=== PATIENT | female | born 2000 | race Caucasian/White ===

== ENCOUNTER → 2018-05-06 15:51 | Outpatient (CLI) | payer MEDICAID, SELFPAY ==
--- NOTE | 2018-05-06 09:10 | TONS_PTH ---
PATIENT: TALITA HSIEH LOC: [facility] U#:[id number] AGE/SX: 24/F ROOM: RE05/06/[address]: Dr. Turner Sood MD : 2000 BED: DIS: SPEC #: [id number] RECD: 05/06/18 15:20 STATUS: ELIZABETH REPhyllis #: [id number] JAMEY: 05/06/18 09:[address]: Turner Sood DEPT: SURGICAL PATHOLOGY RECD BY: Gareth Dunaway ENTERED: 05/07/18 12:01 SP TYPE: TONSILS OTHR DR: Dr. Chapis Dillard MD [facility] Tissues: Tonsil, NOS Procedures: Surgery Specimen Level III Comments: @ Specimen number changed from [id number] to [id number] @ on 05/07/18 at 1541 by RGOOD. HEADER OPERATION: Tonsillectomy PRE-OP DIAGNOSIS: Hypertrophy of tonsils, chronic tonsillitis TISSUE SUBMITTED: Tonsils, right pinned MICROSCOPIC DIAGNOSIS Right and left tonsils, bilateral tonsillectomies: Benign lymphoid follicular hyperplasia, consistent with chronic tonsillitis. Organisms consistent with actinomyces. AM:hernandez 05/09/18 MICROSCOPIC DESCRIPTION Slides are reviewed. GROSS DESCRIPTION Received is one container labeled with the patient's name and designated tonsils - pin on right are two tonsils that in aggregate weigh 10.8 gm. The right tonsil has a pin on it and measures 3 x 1.7 x 1.5 cm. The left tonsil measures 3 x 1.6 x 1.5 cm. Both tonsils are similar in appearance. The external surfaces are pink-murcia, smooth, glistening and somewhat lobulated. Focally they are hemorrhagic, granular and bear cautery artifact. Serial cross sections through the tonsils reveal normal tonsillar architecture. Sections are submitted in two cassettes as follows: 1 - right tonsil, 2 - left tonsil. / AM:hernandez 05/07/18 TC:5 CPT: 12499 x2
== END ==
PROVIDERS: Family Provider Pediatrics; PCP Pediatrics; Visit Provider Otolaryngology
DX: J35.01 Chronic tonsillitis (principal)
CPT/HCPCS: 88304

== ENCOUNTER 2019-03-29 21:50 | Emergency (ER) | payer MEDICAID, SELFPAY ==
[2019-03-29 21:50] VITALS: BP 149/95; PULSE 87; RESP 16; TEMP 37.3; O2SAT 100; BMI 40.3
--- NOTE | 2019-03-29 22:08 | ED.VIS.GEN ---
History of Present Illness Chief Complaint: Burn Informant: Patient Onset: Hours - 1 Context: Sudden Onset - accidentally dropped a soliman of hot brownies that was still liquid, which splashed on her and burned her Timing: Continuous Quality: sore/burn Location: left hand, right knee, right 2nd toe Current Severity: Mild Maximum Severity: Severe Worsened by: palpation Relieved by: leaving it alone Associated Symptoms: none - Past Medical History (1) Depression Status: Chronic (2) Insomnia Status: Chronic Past Medical History - Allergies and Home Meds Allergies/Adverse Reactions: Allergies No Known Allergies Allergy (Verified 03/29/19 21:52) Primary Care Physician: Chapis Dillard MD [Primary Care Provider] - Smoking Status: Current some day smoker Drugs: None Review of Systems Musculoskeletal: Reports: Extremity Pain. Denies: Swelling Skin: Reports: Wounds. Denies: Rash Neurological: Denies: Headache, Weakness, Numbness Physical Exam Vital Signs/Narrative: Vital Signs Temp Pulse Resp BP Pulse Ox 03/29/19 21:50 99.1 F 87 16 149/95 H 100 General: Well nourished, Well developed, No Acute Distress Head: Normocephalic, Atraumatic Extremities: No edema, Tenderness - at burned areas only Skin: Normal color, No rash, No Trauma, - - Very tender, erythematous areas without any blistering/bulla formation on anterior right knee, a small amount on the left hand thenar eminence, and at the tibial aspect of the distal aspect of the right second toe. No other areas of burn. Less than 1% total body surface area, including all areas. Neurological: Alert, Oriented x3, Cranial nerves II-XII grossly intact, Normal Strength, Normal Sensation Psychological: Normal affect, Normal Mood Diagnostic/Tx/Re-eval - Medical Decision Making Patient was reassured this is all first-degree burn, supportive care is advised. She was given a Naprosyn here as well as a cool compress to use on the areas. No tetanus update necessary since there is no break in the skin. ED Disposition - Plan for ED Patient: Disposition: Home or Assisted Living Diagnosis: First degree burn Instructions: BURN, Thermal, (1'2'3') w/ Dressing Referrals: Chapis Dillard MD [Primary Care Provider] - As Needed Additional Instructions: Take ibuprofen 600 mg 2-3 times daily, every 6-8 hours as needed. Or, may take Aleve 1 pill every 12 hours as needed. Use cool compresses as needed for the first day or 2 especially.
[2019-03-29] MEDS: Naproxen 500 MG Tablet PO (22:22)
[2019-03-29 22:28] VITALS: RESP 16
--- NOTE | 2019-03-29 22:28 | ED.RN ---
REVIEWED D/C INSTRUCTIONS, FOLLOW UP CARE, AND S/S THAT WOULD WARRANT A RETURN TO THE ED WITH PT. PT VERBALIZED AN UNDERSTANDING AND DENIES FURTHER QUESTIONS FOR THIS RN. PT SKIN P/W/D, RESP EVEN AND UNLABORED, PT A&O X 3, NO DISTRESS NOTED. PT AMBULATED OUT OF ED, GAIT STEADY.
== END 2019-03-29 22:29 | disposition home or self-care (01) ==
LOC: ED 22:27
PROVIDERS: Emergency Provider Emergency Medicine; Family Provider Pediatrics; PCP Pediatrics
DX: T24.121A Burn of first degree of right knee, initial encounter (principal); T23.102A Burn of first degree of left hand, unspecified site, initial encounter; T25.131A Burn of first degree of right toe(s) (nail), initial encounter; T31.0 Burns involving less than 10% of body surface; X10.1XXA Contact with hot food, initial encounter; Y93.9 Activity, unspecified; Y92.9 Unspecified place or not applicable; F32.9 Major depressive disorder, single episode, unspecified; G47.00 Insomnia, unspecified; Z79.899 Other long term (current) drug therapy; F17.200 Nicotine dependence, unspecified, uncomplicated
CPT/HCPCS: 99283

== ENCOUNTER 2019-06-20 19:57 | Emergency (ER) | payer MEDICAID, SELFPAY ==
[2019-06-20 19:57] VITALS: BP 150/90; PULSE 88; RESP 16; TEMP 36.7; O2SAT 99; BMI 40.2
--- NOTE | 2019-06-20 20:14 | CT_ITS ---
STUDY: CT BRAIN WITHOUT CONTRAST REASON FOR EXAM: Female, 18 years old. Headaches RADIATION DOSAGE (If Supplied By Facility): CTDIvol = ( 44.99 ) mGy, DLP = ( 779.24 ) mGycm TECHNIQUE: Transaxial CT imaging of the brain was performed without administration of intravenous contrast material. Individualized dose optimization techniques were used for this CT. COMPARISON: No relevant priors. FINDINGS: Normal soft tissue structures. Normal calvarium. Normal size ventricles and extra-axial spaces for the patient's age. Normal white matter tracts of the cerebral hemispheres. Normal basal ganglia and thalami. Normal brainstem. Normal cerebellum. Partial empty sella deformity of uncertain clinical significance There is no intracranial hemorrhage. There are no findings of an acute ischemic infarction. Normal visualized paranasal sinuses. CT/Brain/Head without Contrast IMPRESSION: Partial empty sella deformity of uncertain significance Otherwise normal unenhanced CT of the brain. Electronically Signed: Ernie Sherman MD at 21:29 EDT , Service support ,
--- NOTE | 2019-06-20 20:22 | ED.VIS.GEN ---
History of Present Illness Chief Complaint: Headache Informant: Patient Onset: Today Context: Gradual Onset Timing: Continuous Current Severity: Severe Maximum Severity: Severe Worsened by: light Relieved by: nothing Narrative: Patient is a 18-year-old female with history of depression presenting with headache. Patient states she has a history of headaches but she is never had one this severe. Patient states a couple hours prior to arrival she was at home when she developed a headache. She states is on the right side of her head around her eye and going all the way back through her scalp. Is been constant. Is been worsening since it started. She is had 2 episodes of vomiting associated with it. Patient tried to take Advil at home with no relief. She states she has had headaches in the past but they have never been this severe or had vomiting with it. She also states that she was sweating profusely when it started. She is never had a head CT. She denies any other complaints. She states she takes continuous control so she does not know when her last menstrual period was. Patient states her vision feels a little blurry bilaterally but denies any other complaints such as weakness or numbness. Past Medical History - Allergies and Home Meds Allergies/Adverse Reactions: Allergies No Known Allergies Allergy (Verified 03/29/19 21:52) Primary Care Physician: Chapis Dillard MD [Primary Care Provider] - Past Medical History: - - Depression Smoking Status: Current some day smoker Review of Systems All systems negative except as indicated Eyes: Reports: Blurred Vision - bilaterally Gastrointestinal: Reports: Nausea, Vomiting Musculoskeletal: Reports: - Neurological: Reports: Headache Physical Exam Vital Signs/Narrative: Vital Signs Temp Pulse Resp BP Pulse Ox 06/20/19 19:57 98.1 F 88 16 150/90 H 99 Inital Vital Signs reviewed: Yes General: Well nourished, Well developed, Obese, No Acute Distress Head: Normocephalic, Atraumatic Eyes: Perrl, EOMI ENT: Moist mucous membranes, No rhinorrhea, TM's clear Neck: Supple, Nontender Cardiovascular: Regular rate, Regular rhythm, No murmurs Respiratory: No distress, CTA bilaterally, Chest nontender Abdomen: Soft, Nontender, Nondistended, Normal bowel sounds Back: Nontender, Normal Inspection Extremities: Nontender, No edema Skin: Normal color, No rash Neurological: Alert, Oriented x3, Cranial nerves II-XII grossly intact, Normal Strength, Normal Sensation, Normal Gait Psychological: Normal affect, Normal Mood Diagnostic/Tx/Re-eval Clinical Impression(s) from Imaging Studies Brain CT 06/20/19 20:14 IMPRESSION: Partial empty sella deformity of uncertain significance Otherwise normal unenhanced CT of the brain. Electronically Signed: Ernie Sherman MD at 21:29 EDT , Service support , Laboratory Data 06/20/19 20:20 Urine Test Negative - Medical Decision Making She is evaluated for headache. Is more severe than her normal headaches. She does not seem to have a diagnosis of migraines. She is never had a head CT. This is obtained to rule out acute intracranial process. Patient is refusing an IV so she is given oral Zofran and Benadryl prior to the head CT. Urine hCG is obtained prior to head CT. CT shows a partially empty sella deformity of uncertain significance but otherwise normal CT with no acute intracranial process. Patient is informed of incidental finding and need for follow-up with primary care doctor. Patient is then given for continued symptoms. On reevaluation she is improving. She states she is ready to go home. She continues to have normal neurologic exam. Patient is counseled on signs and symptoms requiring return to the emergency room. Patient verbalizes agreement and understand this plan. Patient discharged home in stable and improved condition. ED Disposition - Plan for ED Patient: Disposition: Home or Assisted Living Diagnosis: Headache Instructions: HEADACHE, Unspecified Referrals: Chapis Dillard MD [Primary Care Provider] - Additional Instructions: Follow-up with your primary care doctor next week. Your CT showed what is called an incidental finding. This is not an emergency but should just be followed up with your primary care doctor. You have been given a copy of your CT report. It is safe for you to go home. You can alternate Tylenol and ibuprofen for pain at home.
[2019-06-20] MEDS: DiphenhydrAMINE 25 MG Capsule 50 MG PO (20:25)
[2019-06-20] MEDS: Ondansetron ODT 4 MG Tablet PO (20:25)
[2019-06-20 20:45] LABS: Internal QC Validated? YES +Cl - CLEAR BKGD; Pregnancy, Urine Negative Negative
[2019-06-20] MEDS: Ketorolac 15 MG/ML Vial IM (22:23)
[2019-06-20] MEDS: proCHLORPERazine 5 MG Tablet 10 MG PO (22:39)
== END 2019-06-20 23:23 | disposition home or self-care (01) ==
PROVIDERS: Emergency Provider Emergency Medicine; Family Provider Pediatrics; PCP Pediatrics
DX: R51 Headache (principal); E23.6 Other disorders of pituitary gland; R11.2 Nausea with vomiting, unspecified; H53.8 Other visual disturbances; E66.9 Obesity, unspecified; F32.9 Major depressive disorder, single episode, unspecified; Z79.3 Long term (current) use of hormonal contraceptives; Z79.899 Other long term (current) drug therapy; F17.200 Nicotine dependence, unspecified, uncomplicated
CPT/HCPCS: 70450; 81025; 96372; 99283

== ENCOUNTER 2019-06-24 13:58 | Emergency (ER) | payer MEDICAID, SELFPAY ==
[2019-06-24 13:59] VITALS: BP 140/69; PULSE 79; RESP 16; TEMP 36.6; O2SAT 95; BMI 39.5
--- NOTE | 2019-06-24 15:29 | ED.DCSUM_ITS ---
History of Present Illness Chief Complaint: Headache Informant: Patient Onset: Today Context: Gradual Onset Timing: Continuous Current Severity: Severe Maximum Severity: Severe Narrative: Patient is a 18-year-old female presenting with a headache. She states started around 1 PM when she was having into work. She had one episode of vomiting since then. The headache is worsened gradually over this time. She states it is mostly over her right eye and radiates around her head on both sides. She has bilateral blurry vision associated with this. She states she had a similar headache about 5 days ago where she was seen in the ER. That time patient had a head CT that was negative for any acute process but did incidentally show an empty sella. Patient has not yet followed up with her primary care doctor. She did not take anything for headache prior to arrival. She denies any other complaints at this time. She denies any associated fever, rash, altered se nsations or weakness. Past Medical History - Allergies and Home Meds Allergies/Adverse Reactions: Allergies No Known Allergies Allergy (Verified 06/24/19 13:59) Primary Care Physician: Chapis Dillard MD [Primary Care Provider] - Prior records reviewed: Yes Past Medical History: - - Depression Surgical History: no surgical history Smoking Status: Never smoker Review of Systems All systems negative except as indicated Eyes: Reports: Blurred Vision - bilaterally Gastrointestinal: Reports: Nausea, Vomiting - x1 Neurological: Reports: Headache Physical Exam Vital Signs/Narrative: Vital Signs Temp Pulse Resp BP Pulse Ox 06/24/19 13:59 98 F 79 16 140/69 H 95 Inital Vital Signs reviewed: Yes General: Well nourished, Well developed, No Acute Distress Head: Normocephalic, Atraumatic Eyes: Perrl, EOMI ENT: Moist mucous membranes, No rhinorrhea Neck: Supple, Nontender Cardiovascular: Regular rate, Regular rhythm, No murmurs Respiratory: No distress, CTA bilaterally, Chest nontender Abdomen: Soft, Nontender, Nondistended, Normal bowel sounds Back: Nontender, Normal Inspection Extremities: Nontender, No edema Skin: Normal color, No rash Neurological: Alert, Oriented x3, Cranial nerves II-XII grossly intact, Normal Strength, Normal Sensation, - - NIH 0, GCS 15 Psychological: Normal affect, Normal Mood Diagnostic/Tx/Re-eval - Medical Decision Making Patient is evaluated for headache. It is not a thunderclap headache. She is a normal neurologic exam. Patient had a negative head CT last week. I do not think repeat imaging is indicated. She does not have any signs or symptoms consistent with meningitis. Patient is given a migraine cocktail consisting of Compazine, Toradol Benadryl and fluids. Patient requested her IV be removed before fluids could be completed. Patient eloped from the department before I could reevaluate her. When I initially evaluated the patient and I did discuss the need for her to follow-up with her primary care doctor as these headaches have now been more recurrent. She had verbalized agreement that. Because patient left before I could reevaluate,eloped, she did not receive the discharge paperwork. ED Disposition - Plan for ED Patient: Disposition: Home or Assisted Living Diagnosis: Migraine Instructions: HEADACHE, Unspecified Referrals: Chapis Dillard MD [Primary Care Provider] -
[2019-06-24 15:49] VITALS: BP 126/65; PULSE 69; RESP 15; O2SAT 96
[2019-06-24] MEDS: 0.9% Normal Saline 1,000 ML 999 ML IV (15:50)
[2019-06-24] MEDS: proCHLORPERazine 10 MG/2 ML Vial IV (15:51)
[2019-06-24] MEDS: Ketorolac 30 MG/ML Syringe IV (15:51)
[2019-06-24] MEDS: DiphenhydrAMINE 50 MG/ML Syringe IV (15:51)
== END 2019-06-24 19:00 | disposition home or self-care (01) ==
PROVIDERS: Emergency Provider Emergency Medicine; Family Provider Pediatrics; PCP Pediatrics
DX: G43.909 Migraine, unspecified, not intractable, without status migrainosus (principal); F32.9 Major depressive disorder, single episode, unspecified; Z79.899 Other long term (current) drug therapy
CPT/HCPCS: 96361; 96374; 96375; 99283; J7030; A4216

== ENCOUNTER → 2019-07-15 15:25 | Outpatient (CLI) | payer MEDICAID, SELFPAY ==
[2019-06-24 13:59] VITALS: BMI 39.5
== END ==
PROVIDERS: Family Provider Pediatrics; PCP Pediatrics; Referring Provider Otolaryngology Otolaryngology/Facial Plastic Surgery; Visit Provider Otolaryngology Otolaryngology/Facial Plastic Surgery
DX: J02.9 Acute pharyngitis, unspecified (principal)
CPT/HCPCS: 87070

== ENCOUNTER 2019-08-28 16:56 | Emergency (ER) | payer MEDICAID, SELFPAY ==
[2019-08-28 16:56] VITALS: BP 143/82; PULSE 79; RESP 18; TEMP 36.7; BMI 40.7
--- NOTE | 2019-08-28 17:11 | ED.DCSUM_ITS ---
- ER Visit Summary Date of Service: 08/28/19 Chief Complaint: [Migraine headache] History of Present Illness: The patient is a 18 F presents the emergency department complaint of a headache that started 3 days ago. Patient states that it started typical of her migraines with pain behind the right eye on the right side of her head that then went to the back of her head. Currently the entire head hurts. Patient states that she gets headaches at least once a week. She has had to come to the emergency department for treatment. Patient states that she was recently started on a new medication for migraines by her primary care physician but she cannot remember the name of it. Patient denies any falls or head injuries. She denies recent illness. She describes occasional photophobia. She has had no significant nausea or vomiting.] Physical Examination: [HEENT-PERRLA, EOMI. Cranial nerves II through XII grossly intact. TMs clear. Mucous membranes moist. No adenopathy. Cardiovascular-regular rate and rhythm without murmur or ectopy Lungs-clear to auscultation, chest wall stable without crepitus or subcu emphysema Abdomen-normoactive bowel sounds, soft, nontender, no rebound or rigidity, no peritoneal signs. Neuro [id number]-[id number]-isor and heel kemp testing within normal limits, negative Romberg, negative pronator, fundi benign Extremities-intact ?4, normal range of motion, normal pulses, atraumatic] Test Results: [None indicated] Emergency Department Course and Treatment: [Patient was given Toradol 60 mg IM as well as Phenergan 25 mg IM. Patient refused IV fluids and IV meds. Patient's headache did improve and now rates it a 5 out of 10.] Treatment Plan: [Advised to push fluids and follow-up with her primary care physician within next 3 to 5 days.] Disposition: [Discharged home in stable condition.] Impression: [Migrainous cephalgia] This note was generated with [employer] dictation software. It may contain incorrect words, spelling, and punctuation that were not noted in review of the chart prior to signing ED Disposition - Plan for ED Patient: Referrals: Chapis Dillard MD [Primary Care Provider] -
[2019-08-28] MEDS: proMETHazine 25 MG/ML Syringe IM (17:20)
[2019-08-28] MEDS: Ketorolac 60 MG/2 ML Vial IM (17:21)
--- NOTE | 2019-08-28 18:02 | ED.DEP ---
ED Disposition - Plan for ED Patient: Instructions: ED, Migraine (Classical) Referrals: Chapis Dillard MD [Primary Care Provider] - 3-5 Days
[2019-08-28 18:14] VITALS: BP 131/70; PULSE 60; RESP 16; O2SAT 99
--- NOTE | 2019-08-28 18:15 | ED.RN ---
DISCHARGE INSTRUCTIONS GIVEN TO AND REVIEWED WITH PATIENT, PATIENT DENIES QUESTIONS OR CONCERNS AND VOICES UNDERSTANDING OF DISCHARGE INSTRUCTIONS. PT AMBULATES OUT OF ROOM WITHOUT DIFFICULTY.
== END 2019-08-28 18:15 | disposition home or self-care (01) ==
LOC: ED 17:14
PROVIDERS: Emergency Provider Emergency Medicine; Family Provider Pediatrics; PCP Pediatrics
DX: G43.909 Migraine, unspecified, not intractable, without status migrainosus (principal); Z79.899 Other long term (current) drug therapy; Z72.0 Tobacco use
CPT/HCPCS: 96372; 99282

== ENCOUNTER 2019-09-02 14:44 | Emergency (ER) | payer MEDICAID, SELFPAY ==
[2019-09-02 14:45] VITALS: BP 146/73; PULSE 91; RESP 16; TEMP 36.8; O2SAT 97; BMI 40.3
--- NOTE | 2019-09-02 14:54 | ED.VIS.GEN ---
History of Present Illness Chief Complaint: Abd Pain Informant: Patient Onset: Days - Onset 3 days ago Context: Sudden Onset Timing: Intermittent Quality: Sharp Location: Bilateral radiating to the back Current Severity: - Maximum Severity: Severe Worsened by: Nothing Relieved by: Nothing Associated Symptoms: The site of food makes me want a vomit. Narrative: She is a 18-year-old female who states her last normal menstrual period ended 2 days ago who presents with intermittent bilateral abdominal pain that radiates through to her back described as sharp. Nothing makes the pain better or worse. She thought she may have been dehydrated drink more fluid and is urinated more. She denies hematuria or dysuria. She denies history of ovarian cysts or endometriosis. The drive to the emergency room did have not have affect. She states she is not eating much. She states when the pain is intense she loses her breath. The pain does not awaken her during the evening when she is asleep. She denies fever, chills or night sweats. She denies weight gain or weight loss. She denies recent URI symptoms. There is no history of trauma. There is no history of prior abdominal pain. Prior similar symptoms: No Recent Illness/Hospitalization: No - Past Medical History (1) Depression Status: Chronic (2) Insomnia Status: Chronic Past Medical History - Allergies and Home Meds Allergies/Adverse Reactions: Allergies No Known Allergies Allergy (Verified 09/02/19 14:47) Primary Care Physician: Chapis Dillard MD [Primary Care Provider] - Prior records reviewed: Yes Surgical History: no surgical history Lives: With Family Smoking Status: Current every day smoker Alcohol: None Drugs: None Review of Systems General: Denies: Chills, Fever, Sweats Eyes: Reports: Diplopia. Denies: Visual changes - bilaterally, Blurred Vision - bilaterally ENT: Denies: Bilateral ear pain, Rhinorrhea, Sore throat Cardiovascular: Denies: Chest pain, Palpitations Respiratory: Denies: Dyspnea, Cough, Dyspnea on exertion Gastrointestinal: Reports: Abdominal pain, Nausea. Denies: Vomiting, Diarrhea, Constipation, Melena, Hematochezia, -, - Genitourinary: Reports: Frequency. Denies: Dysuria, Hematuria, -, - Musculoskeletal: Reports: Back pain. Denies: Myalgias, Arthralgias, Neck pain, Swelling, Extremity Pain, -, - Skin: Denies: Rash, Wounds Neurological: Denies: Headache, Weakness, Numbness Psych: Reports: Depression Hematologic: Denies: Easy bruising, Easy bleeding Physical Exam Vital Signs/Narrative: Vital Signs Temp Pulse Resp BP Pulse Ox 09/02/19 14:45 98.3 F 91 16 146/73 H 97 Inital Vital Signs reviewed: Yes General: Well nourished, Well developed, Obese, No Acute Distress Head: Normocephalic, Atraumatic Eyes: Perrl, EOMI. Negative for: Pale conjunctiva, Scleral icterus ENT: Moist mucous membranes, No rhinorrhea Neck: Supple, Nontender, No lymphadenopathy, No JVD Cardiovascular: Regular rate, Regular rhythm, No murmurs, Normal S1, Normal S2 Respiratory: No distress, CTA bilaterally, Chest nontender Abdomen: Soft, Nontender, Nondistended, Normal bowel sounds, No masses Back: Nontender, Normal Inspection. Negative for: CVA tenderness Extremities: Nontender, No edema Skin: Normal color, No rash, No Trauma. Negative for: Cyanosis, Diaphoresis, Jaundice Neurological: Alert, Oriented x3, Cranial nerves II-XII grossly intact, Normal Strength, Normal Sensation Psychological: Normal affect, Normal Mood Diagnostic/Tx/Re-eval Laboratory Results 09/02/19 09/02/19 09/02/19 15:13 15:13 16:10 WBC 11.0 RBC 4.47 Hgb 12.5 Hct 39.1 MCV 87.5 MCH 28.0 MCHC 32.0 RDW Std Deviation 43.3 RDW Coeff of Medardo 13.5 Plt Count 275 MPV 9.0 Immature Gran % (Auto) 0.200 Neut % (Auto) 70.4 H Lymph % (Auto) 21.1 [place] % (Auto) 7.5 Eos % (Auto) 0.5 Baso % (Auto) 0.3 Absolute Neuts (auto) 7.8 H Absolute Lymphs (auto) 2.33 Nucleated RBC % 0 Serum , Qual NEGATIVE Urine Color Straw Urine Clarity Clear Urine pH 6.0 Ur Specific [place] 1.010 Urine Protein Negative Urine Glucose (UA) Normal Urine Ketones Negative Urine Occult Blood 25 H Urine Nitrite Negative Urine Bilirubin Negative Urine Urobilinogen Normal Ur Leukocyte Esterase 500 H Urine RBC 0 SEEN Urine WBC 5-10 SEEN Ur Squamous Epith Cells 0-5 SEEN Urine Bacteria RARE Urine Mucus 0 SEEN CBC and differential unremarkable. Serum test is negative. Urine is positive for leukoesterase and blood on macro. Micro reveals no red cells 5-10 WBCs and positive bacteria. Since she is reporting frequency this may represent a urinary tract infection. Will treat with nitrofurantoin. - Medical Decision Making Patient with intermittent sharp pain. Since she reports frequency UA was obtained. CBC was obtained to evaluate for anemia and white count. Patient's exam is benign with no tenderness. ED Disposition - Plan for ED Patient: Disposition: Home or Assisted Living Diagnosis: Cystitis, Abdominal pain, acute, bilateral lower quadrant Instructions: Urinary Tract Infections in Women Prescriptions: Nitrofurantoin Macrocrystal [Nitrofurantoin] 100 mg PO BID #10 cap Prescription Printed Referrals: Chapis Dillard MD [Primary Care Provider] - 3-5 Days if not improving
[2019-09-02 15:25] LABS: Absolute Lymphocyte Count 2.33 X10^3/uL (0.83-4.51); Absolute Neutrophil Count 7.8 X10^3/uL (2.0-7.7); Basophil# 0.03 X10^3/uL; Basophil% 0.3 % (0-1); Eosinophil# 0.06 X10^3/uL; Eosinophils% 0.5 % (0-5); Hematocrit 39.1 % (37-47); Hemoglobin 12.5 g/dL (12.0-15.0); Lymphocyte # 2.33 X10^3/ul (4.0); Lymphocyte % 21.1 % (19-41); Mean Corpuscular Volume 87.5 fL (81-99); Monocyte# 0.83 X10^3/uL; Monocyte% 7.5 % (0-10); NRBC Flagged by Analyzer 0 % (0-5); Neutrophil # 7.77 X10^3/uL (2.7-7.7); Neutrophil % 70.4 % (47-70); Platelet Count 275 K/mm3 (150-450); RBC Distribution Width CV 13.5 % (11.6-14.6); RBC Distribution Width SD 43.3 fl (35.1-43.9); Red Blood Count 4.47 M/mm3 (4.2-5.4)
[2019-09-02 15:29] LABS: Internal QC Validated? YES +Cl - CLEAR BKGD; Pregnancy, Serum, hCG Quali. NEGATIVE Negative
[2019-09-02 16:16] LABS: Mucous, Urine 0 SEEN /hpf (<or=2+); Red Blood Cells-Urine 0 SEEN /hpf (0-5)
[2019-09-02 16:19] LABS: Color, Urine Straw (Yellow); Glucose, Dipstick Normal (Normal); Ketone-Dipstick Negative (Negative); Leukocyte Esterase-Dipstick 500 /ul (Negative); Nitrite-Dipstick Negative (Negative); Occult Blood-Urine 25 /ul (Negative); Protein-Dipstick Negative (Negative); Urine Bilirubin Dipstick Negative (Negative); Urine Clarity Clear (Clear); Urine Urobilinogen Normal (Normal)
[2019-09-02 16:26] LABS: Bacteria RARE /hpf (None Seen); Squamous Epithelial Cells - UA 0-5 SEEN /hpf (5-10); White Blood Cells 5-10 SEEN /hpf (0-5)
[2019-09-02 17:02] VITALS: BP 121/65; PULSE 68; RESP 17; O2SAT 97
== END 2019-09-02 17:02 | disposition home or self-care (01) ==
PROVIDERS: Emergency Provider Emergency Medicine; Family Provider Pediatrics; PCP Pediatrics
DX: N30.90 Cystitis, unspecified without hematuria (principal); H53.2 Diplopia; E66.9 Obesity, unspecified; F32.9 Major depressive disorder, single episode, unspecified; G47.00 Insomnia, unspecified; Z79.899 Other long term (current) drug therapy; F17.200 Nicotine dependence, unspecified, uncomplicated
CPT/HCPCS: 81001; 84703; 85025; 99283

== ENCOUNTER 2020-06-24 17:21 | Emergency (ER) | payer MEDICAID, SELFPAY ==
[2020-06-24 17:21] VITALS: BP 164/103; PULSE 81; RESP 18; TEMP 36.1; O2SAT 95; BMI 34.0
--- NOTE | 2020-06-24 17:30 | ED.VIS.GEN ---
History of Present Illness Chief Complaint: Back Informant: Patient Onset: Today Context: Gradual Onset Timing: Continuous Current Severity: Moderate Maximum Severity: Moderate Narrative: The patient is a 19-year-old female with no significant medical history that presents to the emergency department with left-sided back pain. Patient states she woke with the pain. She states she thinks she slept wrong. States she has had a lot of spasm in her low back. She denies any change in urination, numbness in her groin, or weakness in her leg. She states he tries to bend, makes the pain worse. It is nonradiating. She is had no fevers or chills. She denies any trauma. She states she has had back pain before, but not the significant. She is otherwise been in her normal state of health. Prior similar symptoms: Yes Recent Illness/Hospitalization: No Past Medical History - Allergies and Home Meds Allergies/Adverse Reactions: Allergies No Known Allergies Allergy (Verified 06/24/20 17:23) Primary Care Physician: Chapis Dillard MD [Primary Care Provider] - Prior records reviewed: Yes Past Medical History: None Surgical History: no surgical history Smoking Status: Current every day smoker Review of Systems General: Denies: Chills, Fever, Sweats Eyes: Denies: Visual changes - bilaterally, Diplopia ENT: Denies: Rhinorrhea, Sore throat Cardiovascular: Denies: Chest pain, Palpitations Respiratory: Denies: Dyspnea, Cough, Dyspnea on exertion Gastrointestinal: Denies: Abdominal pain, Nausea, Vomiting, Diarrhea, Melena, Hematochezia Genitourinary: Denies: Dysuria, Hematuria, Frequency Musculoskeletal: Reports: Back pain. Denies: Extremity Pain Skin: Denies: Rash, Wounds Neurological: Denies: Headache, Weakness, Numbness Physical Exam Vital Signs/Narrative: Vital Signs Temp Pulse Resp BP Pulse Ox 06/24/20 17:21 96.9 F L 81 18 164/103 H 95 Inital Vital Signs reviewed: Yes General: Well nourished, Well developed, No Acute Distress Head: Normocephalic, Atraumatic Eyes: Perrl, EOMI ENT: Moist mucous membranes, No rhinorrhea Neck: Supple, Nontender Cardiovascular: Regular rate, Regular rhythm, No murmurs Respiratory: No distress, CTA bilaterally, Chest nontender Abdomen: Soft, Nontender, Nondistended, Normal bowel sounds Back: Normal Inspection, - - Left paraspinal lumbar tenderness with tightness and spasm. Normal straight leg raise. Normal pulses and reflexes.. Negative for: Spinal tenderness Extremities: Nontender, No edema Skin: Normal color, No rash Neurological: Alert, Oriented x3, Cranial nerves II-XII grossly intact, Normal Strength, Normal Sensation Psychological: Normal affect, Normal Mood Diagnostic/Tx/Re-eval Clinical Impression(s) from Imaging Studies Lumbar Spine X-Ray 06/24/20 17:40 IMPRESSION: Normal x-ray examination of the lumbar spine. Electronically Signed: Ernie Sherman MD at 17:55 EDT , Service support , - Medical Decision Making The patient presents with atraumatic left lumbar back pain. She has no midline tenderness. She has a negative straight leg raise. She has normal pulses and reflexes. She is had no red flag symptoms. Plain films are obtained which are unremarkable. The patient was treated with oral medications with some improvement. At this point, she will be discharged home and continue on these medications. She was counseled on ice and anti-inflammatories along with appropriate follow-up. She is comfortable with this plan. Impression 1. Left lumbar strain ED Disposition - Plan for ED Patient: Disposition: Home or Assisted Living Instructions: ED Spasm Back No Trauma Prescriptions: cycloBENZAPRine HCl [Flexeril] 10 mg PO TID PRN #20 tab PRN Reason: Muscle Spasm Prescription Printed Hydrocodone Bitart/Apap 5-325 [[place] 5MG-325MG] 1 tab PO Q6H PRN PRN 3 Days #10 tab PRN Reason: Pain Prescription Printed Referrals: Chapis Dillard MD [Primary Care Provider] -
[2020-06-24] MEDS: cycloBENZAPRine HCl 10 MG Tablet PO (17:36)
[2020-06-24] MEDS: HYDROcodone Bitartrate/Apap 5/325 Tablet PO (17:36)
--- NOTE | 2020-06-24 17:40 | RAD_ITS ---
STUDY: X-RAY - LUMBAR SPINE REASON FOR EXAM: Female, 19 years old. WOKE UP WITH LOWER LEFT BACK PAIN TODAY TECHNIQUE: 3 view(s) of the lumbar spine were obtained. COMPARISON: None FINDINGS: Normal lumbar lordosis. There is no substantial scoliosis. There is a normal alignment of the vertebrae. Normal vertebral bodies and endplates. Normal disc space heights. The soft tissue structures are unremarkable. RAD/Lumbar Spine 2 or 3 Views IMPRESSION: Normal x-ray examination of the lumbar spine. Electronically Signed: Ernie Sherman MD at 17:55 EDT , Service support ,
== END 2020-06-24 18:35 | disposition home or self-care (01) ==
LOC: ED 17:47
PROVIDERS: Emergency Provider Emergency Medicine; PCP Pediatrics
DX: S39.012A Strain of muscle, fascia and tendon of lower back, initial encounter (principal); X58.XXXA Exposure to other specified factors, initial encounter; Y93.9 Activity, unspecified; Y92.9 Unspecified place or not applicable; F17.200 Nicotine dependence, unspecified, uncomplicated
CPT/HCPCS: 72100; 99281; 99284

== ENCOUNTER 2021-01-20 12:32 | Emergency (ER) | payer MEDICAID, SELFPAY ==
[2021-01-20 12:33] VITALS: BP 167/81; PULSE 90; RESP 18; TEMP 36.4; O2SAT 96; BMI 34.0
--- NOTE | 2021-01-20 12:45 | ED.RN ---
BIlateral ankle pain per patient
--- NOTE | 2021-01-20 13:23 | RAD_ITS ---
STUDY: X-RAY - right ANKLE REASON FOR EXAM: 20-year-old female patient with history of ankle pain following a fall., TECHNIQUE: 3 view(s) of the ankle. COMPARISON: None. FINDINGS: Normal visualized distal tibia and fibula. Normal medial and lateral malleoli. Normal tibiotalar articulation and ankle mortise. Normal visualized talus and calcaneus. The visualized subtalar, talonavicular, calcaneocuboid and tarsal articulations are normal. Lateral soft tissue swelling. RAD/Ankle min 3 Views IMPRESSION: Lateral soft tissue swelling. Electronically Signed: Malcolm Marshall MD at 13:57 EDT , Service support ,
--- NOTE | 2021-01-20 13:25 | RAD_ITS ---
STUDY: X-RAY - left ANKLE REASON FOR EXAM: 20-year-old patient with history of ankle pain following a fall., TECHNIQUE: 3 view(s) of the ankle. COMPARISON: None. FINDINGS: Normal visualized distal tibia and fibula. Normal medial and lateral malleoli. Normal tibiotalar articulation and ankle mortise. Normal visualized talus and calcaneus. The visualized subtalar, talonavicular, calcaneocuboid and tarsal articulations are normal. Diffuse soft tissue swelling. RAD/Ankle min 3 Views IMPRESSION: Diffuse soft tissue swelling. Electronically Signed: Malcolm Marshall MD at 13:57 EDT , Service support ,
[2021-01-20] MEDS: HYDROcodone Bitartrate/Apap 5/325 Tablet PO (13:33)
--- NOTE | 2021-01-20 14:21 | EX.ED.GENINJ ---
HPI History of Present Illness Chief Complaint: Fall Narrative Narrative: 20-year-old female presenting with bilateral ankle pain. Patient states she was walking off a porch and slipped and fell. She twisted both of her ankles. She did not hit her head or lose consciousness. She has painful ambulation. She denies other complaints. [facility] Medical History (Updated 01/20/21 @ 14:[address] Danielle Santiago MD) Anxiety Depression Depression Home Medications fluoxetine 60 mg PO DAILY 03/29/19 [History Last Taken 09/02/19] norgestimate-ethinyl estradiol 1 tab PO DAILY 03/29/19 [History Last Taken 09/02/19] trazodone 50 mg PO QHS 03/29/19 [History Last Taken 09/01/19] buspirone 15 mg PO DAILY 08/28/19 [History Last Taken 09/02/19] naproxen 500 mg PO BID #14 tab 01/20/21 [Rx Last Taken Unknown] Allergy/AdvReac Type Severity Reaction Status Date / Time No Known Allergies Allergy Verified 06/24/20 17:23 Social History Smoking Status: Current every day smoker ROS ROS ED Constitutional Constitutional ED: Denies fever(s) Cardiovascular Cardiovascular: Denies chest pain Respiratory/Chest Respiratory/Chest: Denies dyspnea Gastrointestinal Gastrointestinal: Denies abdominal pain Musculoskeletal Musculoskeletal: Reports other Details: Bilateral ankle pain Neurologic Neurologic: Denies headache(s) EXAM Physical Exam Const Vital Signs: 01/20/21 12:33 01/20/21 12:43 Temperature 97.5 F L Temperature Source Temporal Pulse Rate 90 Respiratory Rate 18 Respiratory Depth Normal Blood Pressure 167/81 H Blood Pressure Mean 109 Pulse Ox 96 Oxygen Delivery Method Room Air Room Air Positive well nourished and well developed General Appearance ED: well developed HEENT Reports normocephalic and head/scalp atraumatic Eyes PERRL and EOMs intact bilaterally Neck supple General: Negative for tenderness Chest Wall inspection of chest normal Resp normal respiratory effort and clear to auscultation bilaterally Cardio regular rate and regular rhythm GI non-tender and non-distended Palpation: soft; Negative for guarding or rebound tenderness present no CVA tenderness Extremity Extremity Narrative: Left ankle lateral tenderness and swelling. Right ankle lateral tenderness and swelling. Normal pulses. No knee tenderness. No foot tenderness. Neuro oriented x3 Sensorium / Orientation: alert Psych mental status grossly normal MDM MDM MDM Narrative Medical decision making narrative: Bilateral x-rays read by myself and radiology shows soft tissue swelling. Patient was given [place] x1. She is given prescription for Naprosyn. She was given Aircast. She declined crutches. Advised to follow up with primary care physician. Advised return to ED for worsening complaints. Radiography Diagnostic Testing: Radiology Impression Ankle X-Ray 01/20/21 13:23 IMPRESSION: Lateral soft tissue swelling. Electronically Signed: Malcolm Marshall MD at 13:57 EDT , Service support , Ankle X-Ray 01/20/21 13:25 IMPRESSION: Diffuse soft tissue swelling. Electronically Signed: Malcolm Marshall MD at 13:57 EDT , Service support , Discharge Plan Triage Chief Complaint: Fall Other Complaint: Lower Extremity Injury ED Provider: Danielle Santiago Dx/Rx/DC Orders Clinical Impression: Right ankle sprain, Left ankle sprain Instructions: ED Ankle Sprain (Adult) Prescriptions: New naproxen 500 MG tablet 500 mg PO BID Qty: 14 RF: 0 No Action norgestimate-ethinyl estradiol 1 TABLET tablet 1 tab PO DAILY RF: 0 trazodone 50 MG tablet 50 mg PO QHS RF: 0 fluoxetine 20 MG capsule 60 mg PO DAILY RF: 0 buspirone 15 MG tablet 15 mg PO DAILY RF: 0 Primary Care Provider: Abby Melgoza NP Referrals: Abby Melgoza NP, RISK CONTROL ANALYST-C [Primary Care Provider] - Disposition Disposition: Home, self care
[2021-01-20 14:46] VITALS: BP 124/80; PULSE 70; RESP 17; TEMP 36.7; O2SAT 98
== END 2021-01-20 14:47 | disposition home or self-care (01) ==
PROVIDERS: Emergency Provider Emergency Medicine; PCP Nurse Practitioner Primary Care
DX: S93.401A Sprain of unspecified ligament of right ankle, initial encounter (principal); S93.402A Sprain of unspecified ligament of left ankle, initial encounter; W01.0XXA Fall on same level from slipping, tripping and stumbling without subsequent striking against object, initial encounter; Y93.01 Activity, walking, marching and hiking; Y92.9 Unspecified place or not applicable; F32.9 Major depressive disorder, single episode, unspecified; F41.9 Anxiety disorder, unspecified; Z79.899 Other long term (current) drug therapy; F17.200 Nicotine dependence, unspecified, uncomplicated
CPT/HCPCS: 73610; 99284

== ENCOUNTER 2021-02-21 10:03 | Outpatient (RCR) | payer MEDICAID, SELFPAY ==
--- NOTE | 2021-02-21 10:48 | HP.PTEVAL_ITS ---
Patient's Visit Information TALITA HSIEH is a 20 year old F referred to Physical Therapy by Dr. Lm Ivy DPM with a diagnosis of B ankle sprain.. Date of Evaluation: 02/21/21 Physical Therapist: Edvin Rico DPT, OCS, CSCS - Visit Plan Frequency: 3x /Week Duration: 4-6 Weeks Plan: 3x/week for 3-4 weeks for. 1. ROM, mobs and stretching B ankles focussing DF, inversion and gastroc stretching. 2. strength adn proprioception B ankles progressing to I home program as tolerated. 3. ice and TENs as needed for pain. - Subjective 01/20/21 walking on porch and slipped adn fell and hurt both ankles. Went to ED and had them x rayed which were OK. Diagnosed with B ankle sprains. Saw Dr. vIy in [place] adn ligaments still intact. Still cannot walk normal pace, cannot get up off floor, hard to get out of car, cannot go down steps. can't run or jump. They all hurt. She can do them, but they hurt. She feels pain in morning every morning laterally at both ankles. R is worse. Sleep is OK. 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 Hobbies include walking dogs and playing at park. she does that very little due to pain. Mows yard push mow but it hurts. Basic ADLs at home are getting done. Painful to put shoes on, hard to wear close toed shoes. Has steps to basement at home with railing and can do them but they are painful. Lives with boyfriend. - Pain B ankles Pain Intensity (Out of 10): 2 Pain Intensity Range: 0, 10 - Objective Walks very slowly but no antalgia and I today. Trasnfers I. Steps appear painful especially descending due to lack of ROM but reciprocal and I with rail. Pt has pes planus B with hindfoot valgus slightly. AROM B ankles -3 DF with max tight gastroc and soleus. Inv 20 L and 22 R and painful B. Eversion 10 B with pain. PF 40 B. SLS challenging B with ec. Strength is 4- in DF and eversion with pain B in both. Inv is 4 adn painfree B. PF is 5/5. reflexes 0/3 B patella and achilles. Sensation LE WNL to gross light touch. - talar tilt, - varus and valgus at ankles. - Goals Goal 1:: AROM 2 DF to 25 inversion without pain Goal Time Frame: 4-6 Weeks Goal 2:: Steps reciprocal without pain. Goal Time Frame: 4-6 Weeks Goal 3:: Walk normal spped in community and walk dogs without increased pain Goal Time Frame: 4-6 Weeks Goal 4:: Put shoes and socks on without pain Goal Time Frame: 4-6 Weeks Goal 5:: Work without noticiing pain increase in B ankles. Goal Time Frame: 4-6 Weeks - Rehabilitation Potential Physical Therapy Diagnosis: B ankle sprains and diminished Zahida dn strength propriaoception. Rehabilitation Potential: Fair - Anticipated Interventions Patient/Client Instruction: Educate patient on: Condition, Plan of Care For the Purpose of:: To decrease pain, To increase ROM, To improve muscle performance and motor function Therapeutic Exercise to Include: Strength training, Flexibilty training, Gait and locomotor training, Passive ROM, Active ROM For the Purpose of:: To decrease pain, To increase ROM, To improve muscle performance and motor function, To increase tolerance to activity/condition/position, To improve ability of physical actions for home/community/work/leisure, To improve gait and locomotor functions Manual Therapy Techniques to Include: Mobilization, Passive ROM For the Purpose of:: To decrease pain, To increase ROM TENS: Yes Cryotherapy (ice pack, ice massage): Yes For the Purpose of:: To decrease pain, To increase ROM Thank you for the opportunity to evaluate your patient. For Medicare and Medicare HMO plans, please review the plan of care and approve it. It will need to be FAXED BACK to us at [phone] for Medicare purposes. For Medicare only, by signing this I certify the plan of care. Please let me know if there are questions or concerns regarding this plan of care. Physician Signature: Date:
--- NOTE | 2021-04-21 12:30 | HP.PT.NRP ---
TALITA HSIEH was seen in my office for initial evaluation on 02/21/21. The following Plan of Care was established for this patient: Initial Frequency: 3x /Week Initial Duration: 4-6 Weeks Patient/Client Instruction: Educate patient on: Condition, Plan of Care For the Purpose of:: To decrease pain, To increase ROM, To improve muscle performance and motor function Therapeutic Exercise to Include: Strength training, Flexibilty training, Gait and locomotor training, Passive ROM, Active ROM For the Purpose of:: To decrease pain, To increase ROM, To improve muscle performance and motor function, To increase tolerance to activity/condition/position, To improve ability of physical actions for home/community/work/leisure, To improve gait and locomotor functions Manual Therapy Techniques to Include: Mobilization, Passive ROM For the Purpose of:: To decrease pain, To increase ROM TENS: Yes Cryotherapy (ice pack, ice massage): Yes For the Purpose of:: To decrease pain, To increase ROM This patient was last seen in our office 02/21/21. Pertinent comments regarding their Physical therapy will appear below: Pt seen for evaluation and POC established. HE no showed for his next 3 visits. t this point, it has been over 7 weeks and I will disocntinue him due to nonattendance. At this point I will be discontinuing this patient from physical therapy. I would be happy to see this patient again in the future if found appropriate by the physician. Thank you! Edvin Rico, DPT, OCS, CSCS Balance/Gait/Functional tests - Balance/Special Test Scores Lower Extremity Functional Score: 22
== END 2021-02-21 19:00 | disposition home or self-care (01) ==
LOC: PT 10:03
PROVIDERS: PCP Nurse Practitioner Primary Care; Referring Provider Podiatrist Foot & Ankle Surgery; Visit Provider Podiatrist Foot & Ankle Surgery
DX: S93.492D Sprain of other ligament of left ankle, subsequent encounter (principal); S93.491D Sprain of other ligament of right ankle, subsequent encounter; X58.XXXD Exposure to other specified factors, subsequent encounter
CPT/HCPCS: 97110; 97162

== ENCOUNTER 2022-03-24 19:01 | Emergency (ER) | payer MEDICAID, SELFPAY ==
[2022-03-24 19:03] VITALS: BP 174/97; PULSE 119; RESP 18; TEMP 36.6; O2SAT 100; BMI 35.4
--- NOTE | 2022-03-24 21:27 | ED.RN ---
This patient eloped without having xray and without this nurse evaluating patient.
--- NOTE | 2022-03-24 21:44 | EDS_ITS ---
HPI History of Present Illness Chief Complaint: Back Narrative Narrative: Patient presents with bilateral low back pain that she has had for the last 3 to 4 days. She denies any injury. States she started feeling nauseated but has not vomited. She denies any dysuria or hematuria. No urinary frequency. No fevers or chills. She is not taking anything for pain. She denies any loss of bowel or bladder. No radiation down her leg. She presents because she wants to make sure she does not have a kidney infection. Additionally, she is unsure as to the cause of her low back pain. Past medical history does include depression and anxiety. She does take medication for insomnia. She states her pain is worse with motion, and bending and transferring. [facility] Medical History Anxiety Depression Depression Home Medications fluoxetine 20 mg capsule 60 mg PO DAILY 03/29/19 [History Last Taken 09/02/19] norgestimate 0.25 mg-ethinyl estradiol 35 mcg tablet 1 tab PO DAILY 03/29/19 [History Last Taken 09/02/19] trazodone 50 mg tablet 50 mg PO QHS 03/29/19 [History Last Taken 09/01/19] buspirone 15 mg tablet 15 mg PO DAILY 08/28/19 [History Last Taken 09/02/19] naproxen 500 mg tablet 500 mg PO BID #14 tabs 01/20/21 [Rx Last Taken Unknown] Allergy/AdvReac Type Severity Reaction Status Date / Time No Known Allergies Allergy Verified 03/24/22 19:04 Social History Smoking Status: Current every day smoker tobacco type: cigarettes ROS ROS ED ROS Narrative Constitutional: No fever, no chills. HEENT: No sore throat. No neck pain. No loss of vision. No rhinorrhea. Cardiovascular: No chest pain. No palpitations. No pedal edema. Respiratory: No cough, no shortness of breath. Abdominal: No abdominal pain. No nausea. No vomiting. Genitourinary: No dysuria. No hematuria. Musculoskeletal: No myalgias. No arthralgias. Bilateral low back pain. Neurologic: No headaches. No dizziness. No lightheadedness. Skin: No rash. No change in color. Psychiatric: No depression. No anxiety. EXAM Physical Exam Narrative Exam Narrative: Afebrile. Vital signs noted. HEENT: Normocephalic. Atraumatic. PERRL, EOMI. Neck soft and supple. No point tenderness or step off. Cardiovascular: Regular rate and rhythm with intermittent tachycardia. No murmurs, rubs, or gallops appreciated. Respiratory: No tachypnea. Lungs clear to auscultation bilaterally. Gastrointestinal: Abdomen soft, nontender, with normoactive bowel sounds. No rebound or guarding. Neurological: Awake. Alert. Nonfocal, nonlateralizing. Skin: No rash. Normal color. No pallor. Musculoskeletal: No pedal edema. Full range of motion extremities. Bilateral paraspinal lumbar musculature tenderness. No vertebral point tenderness or bony step-off. No CVA tenderness to percussion. Const Vital Signs: 03/24/22 19:03 Temperature 97.8 F Temperature Source Temporal Pulse Rate 119 H Respiratory Rate 18 Blood Pressure 174/97 H Blood Pressure Mean 122 Pulse Ox 100 Oxygen Delivery Method Room Air MDM MDM MDM Narrative Medical decision making narrative: I had ordered a UA, urine test, and x-rays of the patient's back. However, when I went to check on her, the room was empty. I was told by the pathology secretary/transcriptionist that she had left/eloped before her work-up was complete. She gave no reason to me or the RN. Disposition is eloped. Discharge Plan Triage Chief Complaint: Back ED Provider: Grayson Garsia Dx/Rx/DC Orders Clinical Impression: Eloped from emergency department, Acute bilateral back pain Prescriptions: No Action norgestimate-ethinyl estradiol 1 TABLET tablet 1 tab PO DAILY Label Comments: TAKE 1 ACTIVE TABLET BY MOUTH ONCE DAILY TAKE ACTIVE PILLS CONTINUOUSLY trazodone 50 MG tablet 50 mg PO QHS Label Comments: TAKE 1 TABLET BY MOUTH ONCE DAILY AT BEDTIME fluoxetine 20 MG capsule 60 mg PO DAILY buspirone 15 MG tablet 15 mg PO DAILY naproxen 500 MG tablet 500 mg PO BID Qty: 14 0RF Primary Care Provider: Abby Melgoza NP Referrals: Abby Melgoza NP, EVENT ATTENDANT-C [Primary Care Provider] - Disposition Disposition: Elopement Discharge Date/Time: 03/24/22 21:20
== END 2022-03-24 21:20 | disposition left against medical advice (07) ==
PROVIDERS: Emergency Provider Emergency Medicine; PCP Nurse Practitioner Primary Care; Visit Provider Emergency Medicine
DX: M54.50 Low back pain, unspecified (principal); F17.210 Nicotine dependence, cigarettes, uncomplicated; F41.9 Anxiety disorder, unspecified; R11.0 Nausea; F32.A Depression, unspecified; Z79.899 Other long term (current) drug therapy

== ENCOUNTER 2023-02-22 12:00 | Emergency (ER) | payer MEDICAID, SELFPAY ==
[2023-02-22 12:00] VITALS: BP 173/100; PULSE 79; RESP 18; TEMP 36.2; O2SAT 99
--- NOTE | 2023-02-22 12:03 | NURSING ---
NO OLD EKGS
--- NOTE | 2023-02-22 12:32 | RAD_ITS ---
STUDY: X-RAY CHEST REASON FOR EXAM: Female, 22 years old. Chest pain sob TECHNIQUE: PA and lateral views of the chest. COMPARISON: None. FINDINGS: The lungs are clear and expanded. There is no demonstrated pleural abnormality. Normal size heart. Normal mediastinum and naresh. Normal visualized pulmonary arteries. Normal visualized aortic arch and descending thoracic aorta. Normal visualized thoracic spine. Normal visualized ribs, clavicles, and shoulders. There is no demonstrated abnormality of the visualized soft tissue structures of the upper abdomen. RAD/Chest PA and Lateral IMPRESSION: Normal x-ray examination of the chest. Electronically Signed: Malcolm Marshall MD at 13:35 EDT ,
--- NOTE | 2023-02-22 12:32 | EKG12_ITS ---
Test Reason : PALPITATION Blood Pressure : / mmHG Vent. Rate : 073 BPM Atrial Rate : 073 BPM P-R Int : 158 ms QRS Dur : 078 ms QT Int : 386 ms P-R-T Axes : 040 049 019 degrees QTc Int : 425 ms Normal sinus rhythm Normal ECG Confirmed by SOPHY SILVA, ANGELO ([id number]), city editor SHARONA COPPOLA ([id number]) on 02/26/2023 10:38:51 A M Referred By: Confirmed By:MIREYA BECKETT MD
--- NOTE | 2023-02-22 12:34 | ED.VIS.CHEST ---
HPI History of Present Illness Chief Complaint: Palpitations Narrative Narrative: For the past 3 to 4 days patient has been having episodes of palpitations that usually feel like racing but occasionally just beating hard and pounding as well, that lasts 10 minutes or less, and are associated with upper chest heaviness and dyspnea but not lightheadedness/near syncope or syncope. When the palpitations go away, the chest discomfort and dyspnea go away. She has never had this before. She is taking no medications or drugs right now, she vapes and is on control pills only. She is concerned because in the past 6 months her wisdom teeth have really been bothering her, she went to urgent care and her dentist, both of which confirmed that she had an infection at that time and she was on a course of antibiotics for 10 days, that was about 3 to 4 weeks ago, did help settle the pain down some, and now, around the same time that the palpitations and chest symptoms started, her wisdom teeth pain is getting worse again. Being concerned about all this, she just went to urgent care, they gave her a prescription for antibiotics for the dental issue and discharged her, and she states that since they would not run any blood tests or look into her palpitations and chest symptoms, she came right here, she does have a prescription for antibiotics that she has not yet filled though. No history of DVT or PE. No recent travel, immobilization, hospitalization, or surgery. No pain or swelling in either leg. No fevers or chills or feeling poorly in general. No GI symptoms. [facility] Medical History Anxiety Depression Depression Home Medications fluoxetine 20 mg capsule 60 mg PO DAILY 03/29/19 [History Last Taken 09/02/19] norgestimate 0.25 mg-ethinyl estradiol 35 mcg tablet 1 tab PO DAILY 03/29/19 [History Last Taken 09/02/19] cefdinir 300 mg capsule 300 mg PO BID #20 caps 01/29/23 [Rx Last Taken Unknown] Allergy/AdvReac Type Severity Reaction Status Date / Time No Known Allergies Allergy Verified 01/09/23 12:07 Family History Other Colon cancer Hypertension Surgical History Hx of tonsillectomy Social History Smoking Status: Current every day smoker tobacco type: cigarettes Electronic Cigarette Use: with nicotine ROS ROS ED Constitutional Constitutional ED: Denies chills or fever(s) Eyes Eyes: Denies change in vision or diplopia ENT ENT ED: Reports other Details: Dental pain ; Denies rhinorrhea or sore throat Cardiovascular Cardiovascular: Reports chest pain, palpitations and racing heartbeat Respiratory/Chest Respiratory/Chest: Reports dyspnea; Denies cough Gastrointestinal Gastrointestinal: Denies abdominal pain, diarrhea, nausea or vomiting Genitourinary Genitourinary ED: Denies dysuria or hematuria Musculoskeletal Musculoskeletal: Denies back pain or neck pain Integumentary Denies abscess or rash Neurologic Neurologic: Denies headache(s), paresthesias or weakness Psychiatric Psychiatric: Denies anxiety or suicidal thoughts EXAM Physical Exam Const Vital Signs: 02/22/23 12:00 02/22/23 13:16 02/22/23 14:00 Temperature 97.1 F L Temperature Source Temporal Pulse Rate 79 68 74 Respiratory Rate 18 16 18 Blood Pressure 173/100 H 134/66 H 104/69 Blood Pressure Mean 79 88 80 Pulse Ox 99 99 98 Oxygen Delivery Method Room Air Room Air Room Air Positive well nourished and well developed Constitutional Narrative: Well-appearing in no distress General Appearance ED: well developed and NAD HEENT Reports moist mucous membranes HEENT Narrative: No trismus or external swelling normocephalic and atraumatic Eyes PERRL and EOMs intact bilaterally Neck full ROM and supple Resp normal respiratory effort and clear to auscultation bilaterally Cardio regular rate, regular rhythm and no murmurs Rate: Negative for tachycardic GI non-tender and non-distended Auscultation: normoactive bowel sounds Palpation: soft Back/Spine no CVA tenderness General Back: other FROM Extremity normal to inspection General Extremety ED: Negative for edema, pulses abnormal or tenderness General Extremity: Negative for edema or pulses abnormal Neuro oriented x3, CN's II-XII intact bilaterally and no sensory deficits noted Sensorium / Orientation: awake and alert Motor Exam: strength 5/5 throughout Psych mental status grossly normal Skin no rashes or lesions noted and no wounds MDM MDM MDM Narrative Medical decision making narrative: EKG is normal, TSH, troponin, labs including electrolytes, blood counts, and D-dimer are all normal. With regards to the Wells criteria, and a negative D-dimer, this rules out pulmonary embolus acutely in context of this, which I was at a low suspicion for. Patient did not have any recurrent symptoms while she was here on the monitor, she had no dysrhythmias or ectopy. I contacted respiratory, we do have a Holter monitor available, we are going to put a 24-hour monitor on her since she has been having this daily for further monitoring and close a patient follow-up advised but I think she can be discharged. Of note as I discussed with the patient her blood pressure was 173/100 when she initially got here, but with observation it came down and her most recent pressure is 104/69. I certainly not can to prescribe her any antihypertensives regarding this swing, it is unclear if her blood pressure has been spiking or not and is causing any of the symptoms but it certainly is possible, which is why recommend close outpatient follow-up in addition to the monitor we are putting on her. She is comfortable with that plan. By the time respiratory and I returned to the room to discharge her and place her Holter monitor, the patient had eloped prior to receiving this, but she was present for the discussion above as documented. Lab Data Attestation: I reviewed the patient's lab results. Labs: Laboratory Results - last 24 hr 02/22/23 02/22/23 02/22/23 12:50 12:50 12:50 WBC 9.8 RBC 5.05 Hgb 14.4 Hct 45.0 MCV 89.1 MCH 28.5 MCHC 32.0 RDW Std Deviation 45.1 H RDW Coeff of Medardo 13.9 Plt Count 354 MPV 9.3 Immature Gran % (Auto) 0.400 Neut % (Auto) 60.4 Lymph % (Auto) 33.3 Crook % (Auto) 4.8 Eos % (Auto) 0.8 Baso % (Auto) 0.3 Absolute Neuts (auto) 5.9 Absolute Lymphs (auto) 3.27 Nucleated RBC % 0 D-Dimer Quant (PE/DVT) 0.27 Sodium 139 Potassium 4.1 Chloride 109 H Carbon Dioxide 24.0 Anion Gap 6 BUN 15 Creatinine 0.70 Est GFR (MDRD) Af Amer 133 Est GFR (MDRD) Non-Af 110 BUN/Creatinine Ratio 21.5 H Glucose 87 Calcium 9.3 Troponin I High Sens < 3 L TSH 1.23 Radiography Diagnostic Testing: Clinical Impression(s) from Imaging Studies Chest X-Ray 02/22/23 12:32 IMPRESSION: Normal x-ray examination of the chest. Electronically Signed: Malcolm Marshall MD at 13:35 EDT , Rhythm Strip Rhythm Strip: Sinus Rhythm Rate: 73 Ectopy: None EKG Initial EKG: Attestation: I personally reviewed and interpreted this EKG as follows: Interpretation: Sinus Rhythm and No Acute Injury Pattern Comments: nml EKG Discharge Plan Triage Chief Complaint: Palpitations ED Provider: Uli Hargrove Dx/Rx/DC Orders Clinical Impression: Heart palpitations, Intermittent chest pain Prescriptions: No Action cefdinir 300 mg capsule 300 mg PO BID Qty: 20 0RF norgestimate-ethinyl estradiol 1 TABLET tablet 1 tab PO DAILY Label Comments: TAKE 1 ACTIVE TABLET BY MOUTH ONCE DAILY TAKE ACTIVE PILLS CONTINUOUSLY fluoxetine 20 MG capsule 60 mg PO DAILY Primary Care Provider: Abby Melgoza NP Referrals: Abby Melgoza NP, [facility] [Primary Care Provider] - Disposition Disposition: Elopement
[2023-02-22 13:15] LABS: Absolute Lymphocyte Count 3.27 X10^3/uL (0.83-4.51); Absolute Neutrophil Count 5.9 X10^3/uL (2.0-7.7); Basophil# 0.03 X10^3/uL; Basophil% 0.3 % (0-1); Eosinophil# 0.08 X10^3/uL; Eosinophils% 0.8 % (0-5); Hemoglobin 14.4 g/dL (12.0-15.0); Lymphocyte # 3.27 X10^3/ul (0.83-4.51); Lymphocyte % 33.3 % (19-41); Mean Corpuscular Hgb 28.5 pg (27.0-32.0); Mean Corpuscular Volume 89.1 fL (81-99); Mean Platelet Vol. 9.3 fl (6.2-12.0); Monocyte# 0.47 X10^3/uL; Monocyte% 4.8 % (0-10); NRBC Flagged by Analyzer 0 % (0-5); Neutrophil # 5.94 X10^3/uL (2.7-7.7); Neutrophil % 60.4 % (47-70); Platelet Count 354 K/mm3 (150-450); RBC Distribution Width CV 13.9 % (11.6-14.6); RBC Distribution Width SD 45.1 fl (35.1-43.9); Red Blood Count 5.05 M/mm3 (4.2-5.4); White Blood Count 9.8 K/mm3 (4.4-11.0)
[2023-02-22 13:16] VITALS: BP 134/66; PULSE 68; RESP 16; O2SAT 99
[2023-02-22 13:36] LABS: Anion Gap 6 (5-15); BUN 15 mg/dL (7-18); BUN/Creat Ratio 21.5 RATIO (10-20); Calcium,Total 9.3 mg/dL (8.5-10.1); Chloride 109 mmol/L (98-107); EST Glomerular Filtration Rate 110 mL/min (>60); Est Glom Filt Rate - Afr Amer 133 mL/min (>60); Glucose 87 mg/dL (74-106); Potassium 4.1 mmol/L (3.5-5.1); Sodium Level 139 mmol/L (136-145); Thyroid Stim Hormone (TSH) 1.23 uIU/mL (0.358-3.74); Troponin-I HS < 3 pg/mL (3.0-54.0)
[2023-02-22 14:00] VITALS: BP 104/69; PULSE 74; RESP 18; O2SAT 98
[2023-02-22 14:26] LABS: D-Dimer Quantitative (DVT/PE) 0.27 FEU/ug/m (0.27-0.49)
[2023-02-22 15:00] VITALS: RESP 16
--- NOTE | 2023-02-22 15:23 | ED.RN ---
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 PT WAS AWARE THAT PT WAS TO WAIT UNTIL MONITOR WAS OBTAINED. WHEN RESPIRATORY RETURNED TO ROOM, PT WAS NO WHERE TO BE FOUND. THIS RN CHECKS BATHROOMS AND PT NOT IN EITHER ONE. PT LEFT WITHOUT RECEIVING HEAD CHAR FILTER TANK TENDER OR DISCHARGE INSTRUCTIONS.
== END 2023-02-22 15:27 | disposition left against medical advice (07) ==
PROVIDERS: Emergency Provider Emergency Medicine; PCP Nurse Practitioner Primary Care; Visit Provider Emergency Medicine
DX: R00.2 Palpitations (principal); R07.9 Chest pain, unspecified; Z79.3 Long term (current) use of hormonal contraceptives; F17.290 Nicotine dependence, other tobacco product, uncomplicated
CPT/HCPCS: 71046; 80048; 84443; 84484; 85025; 85379; 93005; 99284; J7030; A4216

== ENCOUNTER → 2023-12-05 | Outpatient (CLI) | payer MEDICAID, SELFPAY ==
[2023-12-05 13:40] LABS: Cholesterol 210 mg/dL (200); High Density Lipoprotein 44 mg/dL; Triglycerides 171 mg/dL; Very Low Density Lipoprotein 34 mg/dL (5-40)
== END | disposition home or self-care (01) ==
LOC: BIMLAB 11:22
PROVIDERS: PCP Nurse Practitioner; Referring Provider Nurse Practitioner; Visit Provider Nurse Practitioner
DX: Z76.89 Persons encountering health services in other specified circumstances (principal)
CPT/HCPCS: 36415; 80061